=== PATIENT | female | born 2005 | race Two or more races ===

== ENCOUNTER 2024-03-04 12:26 | Emergency (ER) | payer SELFPAY ==
[2024-03-04 12:34] VITALS: BP 128/86; PULSE 83; RESP 18; TEMP 37.3; O2SAT 100; BMI 17.2
--- NOTE | 2024-03-04 13:35 | PC.NURSE ---
contacted [facility] nurse operations technician [id number]
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
[2024-03-04 15:47] LABS: Charge for UA Resulting for Rev
[2024-03-04 15:50] LABS: Bilirubin Urine Negative (Negative); Blood Urine Trace (Negative); Glucose Urine UA Negative (Normal); HCG Qualitative Urine. Negative (Negative); Ketones Urine 1+ (Negative); Leukocyte Esterase Urine 2+ (Negative); Nitrate Urine Positive (Negative); Protein Urine Trace (Negative); Specific Gravity, Urine 1.024 (1.005-1.030); Urine Appearance Cloudy (CLEAR); Urine Color Yellow (Yellow)
[2024-03-04 15:53] LABS: Bacteria Urine 1+ /hpf; Hyaline Casts Urine 2.87 /lpf; RBC Urine 0-2 /hpf (0-2); Squamous Epithelial Cell Urine 0-5 /hpf (0-5); WBC Urine >100 /hpf (0-5)
[2024-03-04 16:05] LABS: Add Urine Culture? Yes
[2024-03-04] MEDS: azithromycin 250 mg Tablet 1000 MG PO (17:14)
[2024-03-04] MEDS: metroNIDAZOLE 500 MG Tablet 2000 MG PO (17:15)
[2024-03-04] MEDS: cefTRIAXone 1,000 mg SDV 1000 MG IM (17:17)
== END 2024-03-04 17:35 | disposition home or self-care (01) ==
PROVIDERS: Emergency Provider Family Medicine
DX: T74.21XA Adult sexual abuse, confirmed, initial encounter (principal); N30.90 Cystitis, unspecified without hematuria; Y07.9 Unspecified perpetrator of maltreatment and neglect
CPT/HCPCS: 81003; 81015; 81025; 87077; 87086; 87186; 96372; 99284; J0696; Q0144

== ENCOUNTER 2024-09-10 08:51 | Outpatient (CLI) | payer SELFPAY ==
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
[2024-09-10 09:12] LABS: HCG Qualitative Urine. Negative (Negative)
[2024-09-10 10:39] LABS: Bilirubin Urine Negative (Negative); Blood Urine Negative (Negative); Glucose Urine UA Negative (Normal); Ketones Urine Negative (Negative); Leukocyte Esterase Urine 2+ (Negative); Nitrate Urine Negative (Negative); Protein Urine Negative (Negative); Specific Gravity, Urine 1.016 (1.005-1.030); Urine Appearance Cloudy (CLEAR); Urine Color Yellow (Yellow); Urobilinogen Urine 0.2 mg/dL (Negative); pH Urine 5.5 (5-7)
[2024-09-10 10:42] LABS: Add Urine Microscopic? YES; Bacteria Urine 2+ /hpf; Hyaline Casts Urine 2.46 /lpf; RBC Urine 0-2 /hpf (0-2); WBC Urine 21-50 /hpf (0-5)
[2024-09-10 11:12] LABS: Amphetamines Screen Urine Negative (Negative); Barbiturates Screen Urine Negative (Negative); Benzodiazepines Screen Urine Negative (Negative); Cocaine Screen Urine Negative (Negative); Opiate Screen Urine Negative (Negative); PCP Screen Urine Negative (Negative); THC Screen Urine Positive (Negative)
[2024-09-10 11:47] LABS: Add Urine Culture? Yes
--- NOTE | 2024-09-10 12:14 | PC.NURSE ---
Prescription Patient called at this time and informed that the physician had sent medication to her preferred pharmacy. She was instructed to contact her PCP if she has worsening urinary symptoms. Patient verbalized understanding and did not have any further questions.
== END 2024-09-10 11:42 | disposition home or self-care (01) ==
LOC: OPOB 08:52 → OBGYN 09:29
PROVIDERS: Visit Provider Family Medicine
DX: Z04.41 Encounter for examination and observation following alleged adult rape (principal)
CPT/HCPCS: 80306; 81001; 81025; 87086